=== PATIENT | male | born 1975 | race Caucasian/White ===

== ENCOUNTER 2019-10-01 09:52 | Day surgery (SDC) ==
[2019-10-01] MEDS ORDERED: NS 1,000 ML, NS 1,000 ML IV ONE ×2 (10:21)
[2019-10-01] MEDS ORDERED: ZOFRAN IV ONE (10:21)
[2019-10-01] MEDS ORDERED: NS 1,000 ML ONE ×2 (10:55→11:05)
[2019-10-01 11:06] LABS: BASO# 0.07 X1000 (0.0-0.2); BASO% 0.4 % (0.0-0.8); EOS# 0.01 X1000 (0.0-0.7); EOS% 0.1 % (0.0-10.0); HEMATOCRIT 50.9 % (42.0-52.0); IMM GRAN# 0.05 X1000 (0.0-0.04); IMM GRAN% 0.3 % (0.0-0.5); LYMPH# 1.28 X1000 (1.2-3.4); LYMPH% 6.5 % (20.5-51.1); MCHC 33.4 g/dL (33-37); MCV 92.7 FL (81-99); MONO# 0.86 X1000 (0.11-0.59); MONO% 4.4 % (1.7-9.3); MPV 9.8 FL (7.4-10.4); NEUT# 17.43 X1000 (1.4-6.5); NEUT% 88.3 % (42.2-75.2); PLT 315 X1000 (130-400); RBC 5.49 XMIL (4.7-6.1); RDW 13.4 % (11.5-14.5)
--- NOTE | 2019-10-01 11:13 | Diag Imaging Result Doc PS360 ---
CHEST-PORTABLE - 10/01/2019 INDICATION: SOB, L lower CP COMPARISON: None FINDINGS: The lungs are normally expanded and clear. Heart size and mediastinal contours are normal. No pneumothorax or pleural effusion. IMPRESSION: Negative exam. Electronically signed by Aaron Ruth 10/01/2019 11:10 AM
[2019-10-01 11:23] LABS: AGAP 11; ALB/GLOB RATIO 1.5; ALBUMIN 4.1 g/dL (3.5-5.0); ALKALINE PHOSPHATASE 79 U/L (32-122); BUN 9 mg/dL (8-22); CALCIUM 9.1 mg/dL (8.8-10.2); CHLORIDE 103 mmol/L (98-107); COSMO 277; CREATININE 0.6 mg/dL (0.7-1.2); ESTIMATED GFR > 60; GLUCOSE 138 mg/dL (70-104); GOT 19 U/L (10-34); GPT 30 U/L (10-44); POTASSIUM 4.2 mmol/L (3.5-5.1); SODIUM 138 mmol/L (136-145); TCO2 24 mmol/L (25-35); TOTAL BILIRUBIN 0.45 mg/dL (0.20-1.00); TOTAL PROTEIN 6.9 g/dL (6.3-8.3)
--- NOTE | 2019-10-01 11:55 | EKG Report ---
Test Performed on : 10/01/2019 10:02:39 AM Test Reason : "heart attack" ekg per EMS Blood Pressure : / mmHG Vent. Rate : 070 BPM Atrial Rate : 070 BPM P-R Int : 132 ms QRS Dur : 076 ms QT Int : 438 ms P-R-T Axes : 055 053 049 degrees QTc Int : 473 ms Normal sinus rhythm. with sinus arrhythmia. Normal ECG No previous ECGs available Unconfirmed Result
[2019-10-01 12:53] LABS: URINE SOURCE CLEAN CATCH
[2019-10-01 13:05] LABS: BILIRUBIN URINE NEGATIVE (NEGATIVE); BLOOD URINE NEGATIVE (NEGATIVE); COLOR YELLOW; GLUCOSE URINE NEGATIVE (NEGATIVE); KETONE URINE 40 mg/dL (NEGATIVE); LEUKOCYTES URINE NEGATIVE (NEGATIVE); NITRITE URINE NEGATIVE (NEGATIVE); PROTEIN URINE TRACE mg/dL (NEGATIVE); SP GRAVITY URINE 1.027; TURBIDITY URINE CLEAR (CLEAR); UROBILINOGEN URINE NORMAL (NORMAL)
[2019-10-01 13:11] LABS: UR EPITHELIAL CELLS <10 /HPF (<10); URINE BACTERIA NEGATIVE /HPF; URINE RBC <10 /HPF (<10); URINE WBC <10 /HPF (<10)
[2019-10-01 13:14] LABS: UR AMPHETAMINES QUAL PRESUMPTIVE POSITIVE (NONE DETECT); UR BARBITUATES QUAL NONE DETECTED (NONE DETECT); UR BENZODIAZEPIN QUAL NONE DETECTED (NONE DETECT); UR CANNABINOIDS QUAL PRESUMPTIVE POSITIVE (NONE DETECT); UR COCAINE QUAL NONE DETECTED (NONE DETECT); UR METHADONE QUAL NONE DETECTED (NONE DETECT); UR OPIATES QUAL NONE DETECTED (NONE DETECT); UR OXYCODONE QUAL NONE DETECTED (NONE DETECT); UR PCP QUAL NONE DETECTED (NONE DETECT); URINE CASTS NONE SEEN; URINE YEAST NONE SEEN
[2019-10-01 13:15] LABS: URINE CRYSTALS NONE SEEN; URINE SMALL ROUND CELLS NONE SEEN
--- NOTE | 2019-10-01 13:20 | Diag Imaging Result Doc PS360 ---
CT ABD/PELVIS W/IV CONT ONLY - 10/01/2019 INDICATION: LUQ pain, leukocytosis COMPARISON: None FINDINGS: The lung bases are clear and the heart size is normal. There is moderate constipation. The vermiform appendix is somewhat enlarged and enhancing. The appendix measures 9 mm. There are some trace adjacent inflammation. No free air or free fluid. The liver, gallbladder, spleen, pancreas, adrenals, and kidneys are normal. Urinary bladder, prostate, and rectum are normal. Bones are intact. IMPRESSION: Probable acute appendicitis. This report was discussed with Dr. Reyes on 10/01/2019 at 1:15 PM and was readback. This exam was performed using automated exposure control, adjustment of mA or kV according to patient size, and/or use of iterative reconstruction technique Electronically signed by Aaron Ruth 10/01/2019 1:17 PM
[2019-10-01] MEDS ORDERED: ZOSYN 3.375 GM in NS 50 ML IV ONE (13:35)
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
[2019-10-01] MEDS ORDERED: MARCAINE 0.25% ONE (14:05)
[2019-10-01] MEDS ORDERED: LR 1,000 ML ONE ×2 (14:05→16:03)
[2019-10-01] MEDS ORDERED: VERSED ONE (14:06)
[2019-10-01] MEDS ORDERED: DIPRIVAN 1% ONE (14:06)
--- NOTE | 2019-10-01 15:09 | HISTORY AND PHYSICAL ---
HISTORY OF PRESENT ILLNESS: Mr. Shady Luna is a 43-year-old, white male who presented to our emergency department with a 24-hour history of abdominal pain. He was evaluated by our emergency department physicians which included a CT scan of his abdomen and pelvis which suggested acute appendicitis. We were asked to evaluate him. PAST MEDICAL HISTORY: He has psychiatric problems and he is disabled. MEDICATIONS: His caregiver was going to bring me a list of his medicine. ALLERGIES: No known drug allergies. SOCIAL HISTORY: He is not working. He is disabled. REVIEW OF SYSTEMS: A 14-point review of systems was performed and was essentially negative except for the history of present illness. FAMILY HISTORY: Noncontributory, but was reviewed with the patient and his family. PHYSICAL EXAMINATION: GENERAL: Mr. Luna is a slim, middle-aged white male. He is in no acute distress. HEENT: No jaundice. No oral lesions. Satisfactory dentition. NECK: No cervical or supraclavicular lymphadenopathy. HEART: Regular rate. LUNGS: Clear to auscultation and percussion bilaterally. ABDOMEN: Flat. He was tender in the right lower quadrant. There are no previous scars on his abdomen. No evidence of hernia. No costovertebral tenderness. RECTAL: Rectal exam was not performed. EXTREMITIES: He does have palpable peripheral pulses. No peripheral edema. NEUROLOGICAL: He is alert and oriented x3 and appropriate. DIAGNOSTIC DATA: CT scans been read by our radiologist and it suggests a dilated appendix consistent with acute appendicitis. IMPRESSION: Acute appendicitis. PLAN: Laparoscopic, possible open appendectomy this afternoon. I have discussed the procedure in detail with the patient at the bedside including risks of bleeding, infection, injury to intra- abdominal contents for trocar placement, removal of a normal appendix, conversion of laparoscopic to open appendectomy, leakage from the appendiceal stump requiring reoperation for drainage of infection. He understands the need for surgery and wants to proceed. cc: Kianna Perez MD
[2019-10-01] MEDS ORDERED: NORCO-10 ONE (15:55)
[2019-10-01] MEDS ORDERED: QUELICIN (DOSE) ONE (16:00)
[2019-10-01] MEDS ORDERED: ROBINUL ONE (16:00)
[2019-10-01] MEDS ORDERED: XYLOCAINE-MPF 2% ONE (16:00)
[2019-10-01] MEDS ORDERED: NEOSTIGMINE ONE (16:00)
[2019-10-01] MEDS ORDERED: MORPHINE ONE (16:02)
[2019-10-01] MEDS ORDERED: DILAUDID ONE (16:09)
[2019-10-01] MEDS ORDERED: NORCO-10 PO PRN (16:14)
[2019-10-01] MEDS ORDERED: PHENERGAN IV PRN (16:20)
[2019-10-01] MEDS ORDERED: SODIUM CHLORIDE 0.9% INJ PRN (16:30)
--- NOTE | 2019-10-01 16:56 | OPERATIVE NOTE ---
PROCEDURE DATE: 10/01/2019 PREOPERATIVE DIAGNOSIS: Acute appendicitis. POSTOPERATIVE DIAGNOSIS: Acute appendicitis. PRINCIPAL PROCEDURE: Laparoscopic appendectomy. SURGEON: Kianna Perez MD. ANESTHESIA: General in addition to local anesthetic. ESTIMATED BLOOD LOSS: 30 mL. DRAINS: None. INDICATIONS: Shady Luna is a 43-year-old white male who presented to our emergency department with abdominal pain. CT scan suggested acute appendicitis as did his exam and appendectomy was recommended. FINDINGS: He had acute appendicitis without rupture. No other intraabdominal pathology was noted. We felt we did the operation safely. DESCRIPTION OF PROCEDURE: The patient was brought to the operating room, placed supine, received general anesthesia, was intubated. His abdomen was prepped and draped within a sterile field. We made a curvilinear incision at the umbilicus using a 15 blade scalpel. Veress needle was introduced through this incision into the abdomen. Pneumoperitoneum was established. Veress needle was removed and we placed a 11 mm step trocar through this incision into the abdomen. The camera was placed through this port and the abdomen was explored for injury, there was none. Two other trocars were placed under direct vision the camera. I placed a 12 mm trocar suprapubic area with a transverse incision, this was a step trocar and I placed a 5 mm step trocar right lower quadrant of the abdomen under direct vision the camera. The patient was then placed in Trendelenburg, turned to his left side. I used a grasper with teeth to identify the appendix. I used a blunt dissector and dissected at the base of the appendix. I used a gold load Endo-DANIE to come across the appendiceal mesentery and then I used a reload of this stapler to come across the base of the appendix. I used an endobag to remove the appendix through our 12 mm port site. I placed the port back through this incision and the area of operation was thoroughly inspected, irrigated and the irrigation was removed with suction. There was no evidence of bleeding and we were happy with the appendiceal stump. We decided against leaving any drains. All trocars removed under direct vision of the camera. The pneumoperitoneum was allowed to dissipate. I used [id number] 2-0 Vicryl stitches to reapproximate the fascia in our midline trocar sites and all skin was closed with 4-0 Monocryl subcuticular stitches. We did use a Huston catheter tube and will remove that at the end of the procedure. He will go the recovery room and then he will go to a room on the floor. cc: Kianna Perez MD
[2019-10-01] MEDS: LR 1,000 ML IV SCH (17:45)
[2019-10-01] MEDS: MOTRIN PO SCH ×2 (20:10→23:45)
[2019-10-01] MEDS: TYLENOL PO SCH (20:10)
[2019-10-02] MEDS: TYLENOL PO SCH ×2 (04:59→09:06)
[2019-10-02] MEDS: LR 1,000 ML IV SCH (07:02)
[2019-10-02 08:09] VITALS: BP 113/81
[2019-10-02] MEDS: MOTRIN PO SCH (09:06)
--- NOTE | 2019-10-02 22:24 | DISCHARGE SUMMARY ---
ADMISSION DATE: 10/01/2019 DISCHARGE DATE: 10/02/2019 ADMITTING DIAGNOSIS: Acute appendicitis. DISCHARGE DIAGNOSIS: Acute appendicitis without rupture. PRINCIPAL PROCEDURE: Laparoscopic appendectomy on 10/01/2019. DISCHARGE DISABILITIES: Full. DISCHARGE MEDICATIONS: He is to return to his home medications. DISCHARGE DIET: Regular. DISCHARGE DISPOSITION: He is to return to my outpatient office in 7 to 10 days for followup. HOSPITAL COURSE: Mr. Shady Luna is a 43-year-old, white male who presented to our emergency department with abdominal pain. As part of his evaluation, he underwent a CT scan of his abdomen which suggested acute appendicitis as did his exam. Yesterday afternoon he underwent a laparoscopic appendectomy for acute appendicitis without rupture. We felt the operation went well. We did not leave a drain and after surgery he went to the recovery room and then was hospitalized on the [address] [place] [address] [place]. On the morning of postop day 1, he was tolerating liquids. He was able to move around in his room his trocar sites were intact and overall we felt he was doing well. It was felt safe to discharge him home under the care of his family with followup in my outpatient office in 7 to 10 days. He knows to contact us with any increasing abdominal pain, nausea, vomiting, or fever. cc: Kianna Perez MD
== END 2019-10-02 10:39 | disposition home or self-care (01) ==
LOC: SUPCPDRO → 4N 09:52 → ED 09:52 → OPS 15:16
PROVIDERS: ATTEND Surgery